=== PATIENT | female | born 1990 ===

== ENCOUNTER 2018-05-23 14:21 | Emergency (ER) | payer MEDICAID, OTHER ==
[2018-05-23 14:21] VITALS: BMI 20.6
[2018-05-23 14:34] VITALS: BP 100/65; PULSE 88; RESP 18; TEMP 98.3; O2SAT 100
--- NOTE | 2018-05-23 14:41 | C.PDOC ---
History Of Present Illness 27 Y/O FEMALE PRESENTS TO THE ED COMPLAINING OF VAGINAL DISCOMFORT FOR THE PAST 2 DAYS. intermit, NOT ASSOC W PENETRATION, MOVEMENT OR URINATION. PATIENT DENIES RASH, ITCHING, DISCHARGE, DYSURIA, FREQUENCY, NAUSEA/VOMITING/DIARRHEA, FEVER, OR OTHER SYMPTOMS. PATIENT'S LMP: MARCH 24. SHE STATES SHE TOOK A HOME TEST, BUT COULD NOT INTERPRET RESULTS. PATIENT IS CURRENTLY ASYMPTOMATIC. Time Seen by Provider: 05/23/18 14:36 Chief Complaint (Nursing): Female Genitourinary History Per: Patient History/Exam Limitations: no limitations Onset/Duration Of Symptoms: Days Current Symptoms Are (Timing): Still Present Severity: Mild Associated Symptoms: denies: Fever Past Medical History Reviewed: Historical Data, Nursing Documentation, Vital Signs Vital Signs: Last Vital Signs Temp 98.3 F 05/23/18 14:32 Pulse 88 05/23/18 14:32 Resp 18 05/23/18 14:32 BP 100/65 05/23/18 14:32 Pulse Ox 100 05/23/18 15:08 - Medical History PMH: No Chronic Diseases Other Surgeries: Hx of surgeries - [facility] Procedures DRAINAGE OF CUL-DE-SAC, PERCUTANEOUS APPROACH (12/08/15) INSPECTION OF PELVIC CAVITY, PERC ENDO APPROACH (12/08/15) RESECTION OF LEFT FALLOPIAN TUBE, OPEN APPROACH (12/08/15) RESECTION OF LEFT OVARY, OPEN APPROACH (12/08/15) RESECTION OF PRODUCTS OF CONCEPTION, ECTOPIC, OPEN APPROACH (12/08/15) Family History: States: No Known Family Hx - Social History Hx Alcohol Use: No Hx Substance Use: No - Immunization History Hx Tetanus Toxoid Vaccination: No Hx Influenza Vaccination: No Hx Pneumococcal Vaccination: No Review Of Systems Except As Marked, All Systems Reviewed And Found Negative. Constitutional: Negative for: Fever, Chills Gastrointestinal: Negative for: Nausea, Vomiting, Diarrhea Genitourinary: Positive for: Other (Vaginal discomfort ). Negative for: Dysuria , Frequency, Vaginal Discharge Skin: Negative for: Rash Physical Exam - Physical Exam Appears: Non-toxic, No Acute Distress Skin: Normal Color, Warm, Dry Head: Atraumatic, Normacephalic Eye(s): bilateral: Normal Inspection Neck: Supple Chest: Symmetrical Cardiovascular: Rhythm Regular Respiratory: Normal Breath Sounds, No Rales, No Rhonchi, No Wheezing Gastrointestinal/Abdominal: Soft, No Tenderness, No Distention, No Guarding Extremity: Normal ROM Neurological/Psych: Oriented x3 Gait: Steady ED Course And Treatment - Laboratory Results Urine POC: Negative O2 Sat by Pulse Oximetry: 100 (RA) Pulse Ox Interpretation: Normal Progress Note: Labs ordered and results reviewed. Test taken in the ED was negative. Patient instructed to follow up with clinic. Disposition Counseled Patient/Family Regarding: Studies Performed, Diagnosis, Need For Followup - Disposition Referrals: [facility] [Outside] [facility] [Outside] [facility] [Outside] Disposition: HOME/ ROUTINE Disposition Time: 15:04 Condition: GOOD Instructions: [facility] Forms: [employer] (Icelandic) Print Language: CITIZEN OF [place] - Clinical Impression Clinical Impression: Vaginal pain - Scribe Statement The provider has reviewed the documentation as recorded by the Scribe Eufemia Vaughn All medical record entries made by the Scribe were at my direction and personally dictated by me. I have reviewed the chart and agree that the record accurately reflects my personal performance of the history, physical exam, medical decision making, and the department course for this patient. I have also personally directed, reviewed, and agree with the discharge instructions and disposition.
[2018-05-23 14:50] LABS: SQUAMOUS EPITHIAL 3 /hpf (0-5); URINE BILIRUBIN NEGATIVE (NEGATIVE); URINE BLOOD NEGATIVE (NEGATIVE); URINE CLARITY Hazy (Clear); URINE COLOR Yellow (YELLOW); URINE GLUCOSE (UA) NORMAL (Normal); URINE LEUKOCYTE ESTERASE NEG Leu/uL (Negative); URINE PROTEIN NEGATIVE (NEGATIVE); URINE UROBILINOGEN NORMAL mg/dL (0.2-1.0)
== END 2018-05-23 15:08 | disposition home or self-care (01) ==
LOC: C.ER 14:21
DX: R10.2 Pelvic and perineal pain (principal)

== ENCOUNTER 2018-08-27 10:40 | Emergency (ER) | payer OTHER ==
[2018-08-27 10:55] VITALS: BMI 29.2
[2018-08-27 11:01] VITALS: RESP 16; TEMP 98.6
[2018-08-27 11:36] LABS: HCG,QUALITATIVE URINE NEGATIVE (NEGATIVE)
[2018-08-27 11:43] LABS: SQUAMOUS EPITHIAL 1 /hpf (0-5); URINE BILIRUBIN NEGATIVE (NEGATIVE); URINE BLOOD NEGATIVE (NEGATIVE); URINE CLARITY Hazy (Clear); URINE COLOR Yellow (YELLOW); URINE GLUCOSE (UA) NORMAL (Normal); URINE LEUKOCYTE ESTERASE NEG Leu/uL (Negative); URINE PROTEIN NEGATIVE (NEGATIVE); URINE UROBILINOGEN NORMAL mg/dL (0.2-1.0)
--- NOTE | 2018-08-27 13:10 | C.PDOC ---
History Of Present Illness 27 y/o female, lmp 8/26, c/o 1 week of vaginal discomfort with watery clear/yellow discharge. no vag bleeding, no dyspareunia. no abdominal pain, no n/v/d. no hx gc/chlamydia. Time Seen by Provider: 08/27/18 11:23 Chief Complaint (Nursing): Female Genitourinary Past Medical History Vital Signs: Last Vital Signs Temp 98.6 F 08/27/18 10:56 Pulse 83 08/27/18 10:56 Resp 16 08/27/18 10:56 BP 111/72 08/27/18 10:56 Pulse Ox 100 08/27/18 10:56 - [facility] Procedures DRAINAGE OF CUL-DE-SAC, PERCUTANEOUS APPROACH (12/08/15) INSPECTION OF PELVIC CAVITY, PERC ENDO APPROACH (12/08/15) RESECTION OF LEFT FALLOPIAN TUBE, OPEN APPROACH (12/08/15) RESECTION OF LEFT OVARY, OPEN APPROACH (12/08/15) RESECTION OF PRODUCTS OF CONCEPTION, ECTOPIC, OPEN APPROACH (12/08/15) Family History: States: Unknown Family Hx - Social History Hx Alcohol Use: No Hx Substance Use: No - Immunization History Hx Tetanus Toxoid Vaccination: No Hx Influenza Vaccination: No Hx Pneumococcal Vaccination: No ED Course And Treatment O2 Sat by Pulse Oximetry: 100 Medical Decision Making 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 Disposition Counseled Patient/Family Regarding: Studies Performed, Diagnosis, Need For Followup, Rx Given - Disposition Referrals: [facility] [Outside] Disposition: HOME/ ROUTINE Disposition Time: 13:11 Condition: GOOD Additional Instructions: Por favor, tome los medicamentos segn lo prescrito. Coloque la medicina en la vagina a la hora de acostarse hannah la prxima semana. No recomiendo sexo para la prxima semana. Elizabeth un seguimiento en la clnica de Matthew: solicite faye clnica de ginecologa cuando elizabeth faye noah. NO tome nada con alcohol (cerveza, vino, licor) cuando tome penny medicamento y hannah la prxima semana despus de terminarlo. Please take medications as prescribed. Put medicine in vagina at bedtime for the next week. Recommend no sex for the next week. Follow up in [facility]- ask for gynecology clinic when making appointment. DO not drink anything with alcohol (beer, wine, liquor) when taking this medicine and for the next week after finishing it. Prescriptions: Metronidazole [Metrogel-Vaginal] 1 ea VG HS #7 gel Instructions: Bacterial Vaginosis (DC) Forms: Gen [facility] Inst Moldovan, [facility] (Moldovan) Print Language: CHINESE - Clinical Impression Clinical Impression: Vaginitis
[2018-08-27 13:30] VITALS: BP 119/75; PULSE 69; O2SAT 98
== END 2018-08-27 13:29 | disposition home or self-care (01) ==
LOC: C.ER 10:40
DX: N76.0 Acute vaginitis (principal)